=== PATIENT | female | born 1990 | race Caucasian/White ===

== ENCOUNTER 2017-05-05 16:49 | Emergency (ER) | payer SELFPAY ==
[~2017-05-05] VITALS: Ht 152.4 cm; Wt 40.9 kg
[~2017-05-05 16:49] MED LIST: NAPROSYN500 MG PO
[2017-05-05 16:52] VITALS: BP 124/79; TEMP 99
[2017-05-05 17:50] LABS: PH 7 (5-8); SQUAMOUS EPITHELIAL 0-2 /hpf; URINE APPEARANCE Clear; URINE BACTERIA Rare /hpf; URINE BILIRUBIN Negative (NEGATIVE); URINE BLOOD 1+ (NEGATIVE); URINE COLOR Straw; URINE GLUCOSE Negative (NEGATIVE); URINE KETONE Negative (NEGATIVE); URINE RBC 0-2 /hpf; URINE UROBILINOGEN Negative (NEGATIVE)
[2017-05-05] MEDS ORDERED: DIFLUCAN150 MG PO (18:28)
[2017-05-05] MEDS ORDERED: MACROBID 1100 MG/CAP PO (18:28)
[2017-05-05] MEDS ORDERED: ANUSOL HC CREAM30 GM TP (18:28)
[2017-05-05] MEDS ORDERED: ANUSOL-HC SUPPO25 MG RC (18:31)
[2017-05-05 18:53] VITALS: PULSE 64
[2017-05-05 20:38] LABS: CHLAMYDIA/TRACH by PCR Female NOT DETECTED; NEISSERIA GON by PCR Female NOT DETECTED
== END 2017-05-05 18:53 | disposition home or self-care (01) ==
LOC: COL.ER 16:49
PROVIDERS: Physician Assistant
DX: N76.0 Acute vaginitis (principal); N39.0 Urinary tract infection, site not specified; K64.4 Residual hemorrhoidal skin tags; N94.10 Unspecified dyspareunia
CPT/HCPCS: J0696